=== PATIENT | female | born 1945 | race Caucasian/White ===

== ENCOUNTER 2018-08-25 08:21 | Day surgery (SDC) | payer MEDICARE, OTHER ==
[~2018-08-25] VITALS: Ht 160 cm; Wt 65.6 kg
[~2018-08-25 08:21] MED LIST: ATOR10 PO; FISH1000 PO; HYDCHL25 PO; TELM40 PO; VICODIN 5-3001 EACH PO
[2018-08-25] MEDS ORDERED: ASPI81CH PO (08:54)
--- NOTE | 2018-08-25 10:17 | NUR ---
LAB CALLED, CHEM 8 BLOOD WAS HEMOLYSED, PER DR MANCERA CANCEL BLOOD WORK, HE STATES HE DID NOT NEED LAB WORK. CHEM 8 WAS DRAWN BASED ON ANESTHESIA PROTOCOL, PT HAS HTN.
--- NOTE | 2018-08-25 12:21 | NUR ---
Patient up to Ambulate independently. Gait steady. Discharge instructions reviewed with patient. Patient verbalizes understanding. Copy given to patient to take home. Patient States Post-Procedure ride home has been arranged. Discharged via wheelchair to private car for ride home.
== END 2018-08-25 22:50 | disposition home or self-care (01) ==
LOC: ORSCMMR 08:21 → ORD 10:15 → ORSCMMR 22:50
PROVIDERS: Surgery
PROC: B5131ZA Fluoroscopy of Right Jugular Veins using Low Osmolar Contrast, Guidance (ICD-10-PCS; principal; 2018-08-25 10:15)
PROC: 05HM33Z Insertion of Infusion Device into Right Internal Jugular Vein, Percutaneous Approach (ICD-10-PCS; principal; 2018-08-25 10:15)
DX: C20 Malignant neoplasm of rectum (principal); Z85.118 Personal history of other malignant neoplasm of bronchus and lung; I10 Essential (primary) hypertension; F17.210 Nicotine dependence, cigarettes, uncomplicated; Z79.82 Long term (current) use of aspirin; Z79.899 Other long term (current) drug therapy
CPT/HCPCS: 77001; 93005; 93010; A9270-GY; C1788; J0690; J1100; J1642; J2250; J2405; J3010; J7120